=== PATIENT | male | born 1990 | race Caucasian/White ===

== ENCOUNTER 2019-10-08 09:37 | Emergency (ER) | payer SELFPAY ==
[~2019-10-08] VITALS: Ht 175.3 cm; Wt 78.5 kg
--- OUTSIDE RECORDS SUMMARY | 2019-10-08 09:40 | XMS REPORT ---
Author Author Geoffrey, Praneeth [place] Organization Unknown Address Unknown Phone Unavailable PROBLEMS Condition Status Date Provider Notes Vitamin D deficiency active Brooklyn Weiss Complicated grief active Brooklyn Weiss Std screening active Brooklyn Weiss Fatigue and malaise active Brooklyn Weiss Depression, mild active Brooklyn Weiss Paresthesia active Brooklyn Weiss Family history of diabetes active Brooklyn dumont Symptom, polyuria active Brooklyn Weiss Polydipsia active Brooklyn Weiss Excessive sweating active Brooklyn Weiss Asthma, moderate persistent, with allergic rhinitis, uncontr olled active Brooklyn Weiss BMI 27.0-27.9 active Brooklyn Weiss Overweight active Brooklyn Weiss ENCOUNTERS Date Type Provider Location Encounter Diagn osis - Ambulatory Encounter Brooklyn [facility] Vitamin D defic iency - Ambulatory Encounter Brooklyn Weiss [facility] UNK - Ambulatory Encounter Brooklyn Weiss [facility] UNK - Ambulatory Encounter Brooklyn Weiss [facility] UNK - Ambulatory Encounter Brooklyn Hwangda Annabelle Siddiqui [facility] OverweightBMI 27.0-27.9Asthma, moderate persistent, with allergic rhinitis, uncontrolledExcessive sweatingPolydipsiaSymptom, polyuriaFamily history of diabetesParesthesiaDepression, mildFatigue and malaiseStd screeningComplicated grief - Ambulatory Encounter Bibi Resendez [facility] UNK - Ambulatory Encounter Bibi Yost [facility] UNK VITAL SIGNS Date Observation Value Provider oxygen saturation, oximetry 97 % Savona a I Siddiqui " method used to obtain blood pressure automatic Natty I Siddiqui " Blood Pressure Position 01 sitting Natty I Siddiqui " blood pressure, site #1 right arm Natty I Siddiqui " blood pressure, diastolic 82 mm[Hg] Natty I Siddiqui " blood pressure, systolic 126 mm[Hg] Natty I Siddiqui " pulse rate E&M 82 /min Natty I Siddiqui " temperature site oral Natty I Guerrer o " temperature E&M 97.5 [degF] Natty I Siddiqui " height E&M 67 [in_i] Natty I Siddiqui " height in centimeters E&M 170.18 cm Natty I Siddiqui " weight E&M 176.20 lbs. Natty I Siddiqui " weight in kilograms E&M 80.09 kg Natty I Siddiqui temperature site oral Nahomy Yost " temperature E&M 98.7 [degF] Nahomy Yost ALLERGIES Allergy Name Onset Date Reaction Criticality Status VALIUM Seizure High Criticality active MORPHINE Seizure High Criticality active REASON FOR REFERRAL No Information Available RESULTS Date Observation Value Provider Reference Range Interpretati on Location parathormone, serum 14 pg/mL [facility] 15-65 Low " hepatitis B surface antigen Negative [facility] Negative " insulin, serum, fasting 25.4 u[iU]/mL [facility] 2.6-24.9 H igh " thyroid stimulating hormone, serum 0.880 u[iU]/mL [facility] 0.450-4.500 " hepatitis C antibody, serum 0.2 [facility] 0.0-0.9 " HIV-CMIA (Chemiluminescent Microparticle Immuno Assay) Non Reactive [facility] Non Reactive " vitamin D 25-hydroxy, serum 21.3 ng/mL [facility] 30.0-100.0 Low " rapid plasma reagin antibody, serum Non Reactive [facility] Non Reactive " C-peptide, serum 3.4 ng/mL [facility] 1.1-4.4 " hemoglobin A1C, blood, as % of total hemoglobin 5.5 % Li n[facility] 4.8-5.6 " alanine aminotransferase (SGPT), serum 25 1/L [facility] 0-44 " aspartate aminotransferase (SGOT), serum 19 1/L [facility] 0-40 " alkaline phosphatase, serum 77 1/L [facility] 39-117 " bilirubin, serum, total 0.5 mg/dL [facility] 0.0-1.2 " albumin/globulin ratio, serum 2.0 [facility] 1.2-2.2 " globulin, serum 2.3 [facility] 1.5-4.5 " albumin, serum 4.6 g/dL [facility] 4.1-5.2 " protein, total, serum 6.9 g/dL [facility] 6.0-8.5 " calcium, serum 9.6 mg/dL [facility] 8.7-10.2 " carbon dioxide, venous blood 24 mmol/L [facility] 20-29 " chloride, serum 104 mmol/L [facility] 96-106 " potassium, serum 4.4 mmol/L [facility] 3.5-5.2 " sodium, serum 142 mmol/L [facility] 134-144 " urea nitrogen/creatinine ratio, serum 14 [facility] 9 -20 " eGFR if 112 mL/min/((173/100).m2) [facility] >59 " Estimated Glomerular Filtration Rate (calc) 97 m L/min/((173/100).m2) [facility] >59 " creatinine, serum 1.04 mg/dL [facility] 0.76-1.27 " urea nitrogen, blood 15 mg/dL [facility] 6-20 " blood glucose, random 70 mg/dL [facility] 65-99 " immature granulocytes, percentage of total cells, bloo d 0 % [facility] Not Estab. " basophil count, absolute 0.0 x10E3/uL [facility] 0.0-0.2 " Eosinophil Absolute Count 0.2 X10E3/UL [facility] 0.0-0.4 " monocyte count, blood, automated 0.6 X10E3/UL [facility] 0.1 -0.9 " lymphocyte count, blood, automated 1.6 X10E3/UL [facility] 0 .7-3.1 " Absolute Neutrophils 4.3 X10E3/UL [facility] 1.4-7.0 " basophils as percent of blood leukocytes 1 % [facility] Not Estab. " eosinophils as percent of blood leukocytes 3 % [facility] Not Estab. " monocytes as percent of blood leukocytes 10 % [facility] Not Estab. " lymphocytes as percent of blood leukocytes 24 % [facility] Not Estab. " neutrophils as percent of blood leukocytes 62 % [facility] Not Estab. " platelet count 268 X10E3/UL [facility] 150-450 " red blood cell distribution width 13.1 % [facility] 11.6- 15.4 " mean corpuscular hemoglobin concentration, RBC 33.8 G/DL [facility] 31.5-35.7 " mean corpuscular hemoglobin, RBC 32.3 pg [facility] 26.6-3 3.0 " mean corpuscular volume, RBC 96 fL [facility] 79-97 " hematocrit, blood 48.5 % [facility] 37.5-51.0 " hemoglobin, blood 16.4 g/dL [facility] 13.0-17.7 " erythrocyte (RBC) count 5.07 X10E6/UL [facility] 4.14-5.80 " leukocyte count, blood 6.8 X10E3/UL [facility] 3.4-10.8 hemoglobin A1C, blood, as % of total hemoglobin 5.9 % Brooklyn Weiss " specific gravity, urine 1.020 Vida Collins " pH, urine, semiquantitative 5.5 Vida Collins " glucose, urine, semiquantitative negative Vida Collins " bilirubin, urine negative Vida Collins " ketones, urine, by test strip negative Vida Collins " blood in urine (hemoglobin) by dipstick negative Vida rojas " protein, urine, semiquantitative (dipstick) negative Alejandra Collins " urobilinogen, urine, semiquantitative (dipstick) negative Champ Collins " nitrite, urine, semiquantitative negative Vida Collins " leukocyte esterase, urine, by dipstick negative Vida Beattyranulfo cobb " appearance, urine clear Vida Collins " urine color yellow Vida Collins " blood glucose, random 87 mg/dL Vida Collins HISTORY OF IMMUNIZATIONS Date Vaccine Dose Lot Number Status Adacel IM [id number] sanofi pasteur 0.5 mL [id number] completed Fluzone Quadrivalent IM PF 0.5 ML [facility] 49 [id number] Sanofi Pasteur 0.5 mL [id number] completed HISTORY OF MEDICATION USE Medication Instructions Dates Provider Comments VITAMIN D (ERGOCALCIFEROL) 20774 UNIT ORAL CAPSULE One capsule by mouth once per week for 12 weeks - Brooklyn Weiss MONTELUKAST SODIUM 10 MG ORAL TABLET take one tab By M outh take at bedtime for allergies and asthma Brooklyn Weiss ADVAIR DISKUS 250-50 MCG/DOSE INHALATION AEROSOL POWDE R BREATH ACTIVATED 1 puff inhaled Twice a Day Brooklyn Weiss PROAIR HFA 108 (90 BASE) MCG/ACT INHALATION AEROSOL SO LUTION 2 puffs every 4 - 6 hours as needed for wheezing Brooklyn Weiss SOCIAL HISTORY Date Observation Value Provider drug use, illicit Never Natty borges " alcohol use, frequency holidays/special occasion s only Natty Siddiqui " alcohol use Currently Natty Siddiqui " social history reviewed E&M reviewed today Venancio Siddiqui " social history E&M Partnered. City: [facility]. State: [place]. 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 Sex at : Male. Sexual orientation: Heterosexual. Gender identity: Male. Gender of partner(s): Female. Age of first sexual intercourse: 16. Sexually Active: Yes. 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 No Natty Siddiqui " assessment of health literacy (NCQA [facility] [address] [place], 3C10) Adequate Natty Siddiqui " passive cigarette smoke exposure No Natty Siddiqui " if the patient is using/has used a vaping item, Current, Former, Never Used, Not asked No Natty Siddiqui " smoking status never smoker Natty Siddiqui " Exercise Program Referral T Natty Siddiqui " Weight Management Counseling Provided T Natty Siddiqui " Nutrition intervention T Natty Osborne ushreyas FUNCTIONAL STATUS No Information Available MENTAL STATUS Date Observation Value Provider mental status examination: orientation E &M oriented to time, place, and person Brooklyn Weiss " assessment of mood and affect E&M anxious Brooklyn Weiss " Generalized Anxiety Disorder Questionnaire - Que stion 2 0 Natty Siddiqui " Generalized Anxiety Disorder Questionnaire - Que stion 1 0 Natty Joshua Siddiqui MEDICAL EQUIPMENT No Information Available FAMILY HISTORY No Information Available INSURANCE PROVIDERS No Information Available ADVANCE DIRECTIVES Name Date DISCUSSED - NO DECISION MADE TREATMENT PLAN Date Name ASSAY OF C-PEPTIDE ASSAY OF INSULIN TOTAL TSH Rfx on Abnormal to Free T4 RPR, Rfx Qn RPR/Confirm TP Vitamin D, 25-Hydroxy PTH, Intact HBsAg Screen HCV Antibody HIV 1/2 ANTIGEN/ANTIBODY, FO URTH GENERATION W/RFL Hemoglobin A1c Comp. Metabolic Panel (14) CBC With Differential/Platel et Behavioral Health - Therapy New Patient Comprehensive - 47896 Handling of specimen for tra nsfer Venipuncture Finger Stick Glucose HEMOGLOBIN A1C - In House Urinalysis - Dip only - In H ouse Addl Vx - Ix admin via ID IM or jet injects without counseling by physician Adacel Intramuscular Suspens ion 5-2-15.5 First Vx - Ix admin via ID I M or jet injects without counseling by physician Fluzone Quadrivalent IM Pref illed Syringe 0.5 mL (PF) Vaccines Ordered - Print Con sent/Declination Forms HISTORY OF PROCEDURES Procedure Date Procedure Name Provider Procedure Notes Status Venipuncture Brooklyn Abhishek comple raimundo Finger Stick Glucose Brooklyn Abhishek completed HEMOGLOBIN A1C - In House Brooklyn Weiss completed Urinalysis - Dip only - In House Brooklyn Weiss completed Addl Vx - Ix admin via ID IM or jet injects without counseling by physician Nahomy Yost completed Adacel Intramuscular Suspension 5-2-15.5 Nahomy Yost completed First Vx - Ix admin via ID I M or jet injects without counseling by physician Nahomy Yost completed Fluzone Quadrivalent IM Prefilled Syringe 0.5 mL (PF) Nahomy Yost completed Vaccines Ordered - Print Consent/Declination Forms Jimmie Yost completed GOALS No Information Available HEALTH CONCERNS No Information Available
--- OUTSIDE RECORDS SUMMARY | 2019-10-08 09:40 | XMS REPORT ---
Author Author Geoffrey, Praneeth [place] Organization Unknown Address Unknown Phone Unavailable PROBLEMS Condition Status Date Provider Notes Vitamin D deficiency active Brooklyn Weiss Complicated grief active Brooklyn Weiss Std screening active Brooklyn Weiss Fatigue and malaise active Brooklyn Weiss Depression, mild active Brooklyn Weiss Paresthesia active Brooklyn Weiss Family history of diabetes active Brooklyn mcfarlanederanulfo Symptom, polyuria active Brooklyn Weiss Polydipsia active Brooklyn Weiss Excessive sweating active Brooklyn Weiss Asthma, moderate persistent, with allergic rhinitis, uncontr olled active Brooklyn Weiss BMI 27.0-27.9 active Brooklyn Weiss Overweight active Brooklyn Weiss ENCOUNTERS Date Type Provider Location Encounter Diagn osis - Ambulatory Encounter Chris Summers [facility] UNK - Ambulatory Encounter Chris Summers [place] [facility] UNK - Ambulatory Encounter Chris Morgan [facility] UNK - Ambulatory Encounter Brooklyn Weiss [facility] Vitamin D defic iency - Ambulatory Encounter Brooklyn Weiss [facility] Chris Summers [facility] UNK - Ambulatory Encounter Brooklyn Weiss [facility] UNK - Ambulatory Encounter [facility] - Ambulatory Encounter Brooklyn Kowalski elizabethyoandy Brooklyn Weiss Raoul Alanis Vida Dennis Siddiqui [facility] OverweightBMI 27.0-27.9Asthma, moderate persistent, with allergic rhinitis, uncontrolledExcessive sweatingPolydipsiaSymptom, polyuriaFamily history of diabetesParesthesiaDepression, mildFatigue and malaiseStd screeningComplicated grief - Ambulatory Encounter Bibi oliverLoglenny [facility] UNK - Ambulatory Encounter Bibi Yost [facility] UNK VITAL SIGNS Date Observation Value Provider oxygen saturation, oximetry 97 % Venancio petty Siddiqui " method used to obtain blood pressure automatic Natty Siddiqui " Blood Pressure Position 01 sitting Natty Joshua Siddiqui " blood pressure, site #1 right arm Natty Joshua Siddiqui " blood pressure, diastolic 82 mm[Hg] Natty I Siddiqui " blood pressure, systolic 126 mm[Hg] Natty I Siddiqui " pulse rate E&M 82 /min Natty I Siddiqui " temperature site oral Natty I Rogerioerrer o " temperature E&M 97.5 [degF] Natty I Siddiqui " height E&M 67 [in_i] Natty I Siddiqui " height in centimeters E&M 170.18 cm Natty I Siddiqui " weight E&M 176.20 lbs. Natty I Siddiqui " weight in kilograms E&M 80.09 kg Natty Joshua BeattySiddiqui temperature site oral Iris Priyank " temperature E&M 98.7 [degF] Iris Priyank ALLERGIES Allergy Name Onset Date Reaction Criticality [...] leukocyte esterase, urine, by dipstick negative Vida cobb " appearance, urine clear Vida Collins " urine color yellow Vida Collins " blood glucose, random 87 mg/dL Vida Collins HISTORY OF IMMUNIZATIONS Date Vaccine Dose Lot Number Status Adacel IM [id number] sanofi pasteur 0.5 mL [id number] completed Fluzone Quadrivalent IM PF 0.5 ML [facility] 49 [id number] Sanofi Pasteur 0.5 mL [id number] completed HISTORY OF MEDICATION USE Medication Instructions Dates Provider Comments VITAMIN D (ERGOCALCIFEROL) 14123 UNIT ORAL CAPSULE One capsule by mouth [...] Weiss SOCIAL HISTORY Date Observation Value Provider time of call 08/24/2019 9:55 AM Lori Morgan drug use, illicit Never Natty borges " alcohol use, frequency holidays/special occasion s only Natty Siddiqui " alcohol use Currently Natty Siddiqui " social history reviewed E&M reviewed today Venancio Siddiqui " social history E&M Partnered. City: [facility]. State: [place]. 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 Sex at : Male. Sexual orientation: Heterosexual. Gender identity: Male. Gender of partner(s): Female. Age of first sexual intercourse: 16. Sexually Active: Yes. 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 No Natty Siddiqui " assessment of health literacy (NCQA [facility] 3[facility]10) Adequate Natty Siddiqui " passive cigarette smoke exposure No Natty Siddiqui " if the patient is using/has used a vaping item, Current, Former, Never Used, Not asked No Natty Siddiqui " smoking status never smoker Natty Siddiqui " Exercise Program Referral T Natty Siddiqui " Weight Management Counseling Provided T Natty Siddiqui " Nutrition intervention T Natty downing FUNCTIONAL STATUS No Information Available MENTAL STATUS Date Observation Value Provider mental status examination: orientation E &M oriented to time, place, and person Brooklyn Weiss " assessment of mood and affect E&M anxious Brooklyn Weiss " Generalized Anxiety Disorder Questionnaire - Que stion 2 0 Natty Siddiqui " Generalized Anxiety Disorder Questionnaire - Que stion 1 0 Natty Joshua BeattySiddiqui MEDICAL EQUIPMENT No Information Available FAMILY HISTORY [...] Health - Therapy New Patient Comprehensive - 37140 Handling of specimen for tra nsfer Venipuncture [...] Name Provider Procedure Notes Status Venipuncture Brooklyn Weiss comple raimundo Finger Stick Glucose Brooklyn Weiss completed HEMOGLOBIN A1C - In House Brooklyn [...]
--- OUTSIDE RECORDS SUMMARY | 2019-10-08 09:40 | XMS REPORT ---
Author Author [facility] t Organization [facility] Address [address] [place] [address] Phone Unavailable Care Team Providers Care Engine Research Engineer Name Role Phone Unavailable Unavailable Payers Payer Name Policy Type Policy Number Effective Date Expiration Date S ource Problems This patient has no known problems. Allergies, Adverse Reactions, Alerts Allergy Name Allergy Type Status Severity Reaction(s) Onset Date Inacti ve Date Treating Clinician Comments Source No Known Allergies DA Active U 2018-11-29 00:00:00 [facility] Medications This patient has no known medications. Procedures This patient has no known procedures. Results Test Description Test Time Test Comments Results Result Comments Source BASIC METABOLIC PANEL 2018-11-29 14:37:00 Test Item SODIUM (test code = NA) 142 mmol/L 136-145 N POTASSIUM (test code = K) 3.6 mmol/L 3.5-5.1 N CHLORIDE (test code = CL) 109.0 mmol/L 98-107 H CARBON DIOXIDE (test code = CO2) 29.0 mmol/L 21-32 N ANION GAP (test code = GAP) 7.6 10-20 L GLUCOSE (test code = GLU) 74 mg/dL 74-106 N BLOOD UREA NITROGEN (test code = BUN) 11 mg/dL 7-18 N GLOMERULAR FILTRATION RATE (test code = GFR) > 60 mL/min >=60 Estimated GFR by using Modified MDRD formula.Chronic kidney disease is defined as either kidney damageor GFR <60 mL/min/1.73 m2 for >3 months. CREATININE (test code = CREAT) 1.20 mg/dL 0.7-1.3 N BUN/CREATININE RATIO (test code = BUN/CREA) 9.2 10-20 L CALCIUM (test code = CA) 8.6 mg/dL 8.5-10.1 N CBC W/O [id number] 14:15:00* Test Item Value Reference Range Interpretation Comments WHITE BLOOD CELL (test code = WBC) 6.6 K/mm3 4.5-12.5 N RED BLOOD CELL (test code = RBC) 4.91 mill/mm3 4.0-5.8 N HEMOGLOBIN (test code = HGB) 15.9 gram/dL 13.0-17.5 N HEMATOCRIT (test code = HCT) 46.5 % 42.0-52.0 N MEAN CELL VOLUME (test code = MCV) 94.7 fL 80-98 N MEAN CELL HGB (test code = MCH) 32.4 picogram 27.0-33.0 N MEAN CELL HGB CONCETRATION (test code = MCHC) 34.2 gram/dL 33.0-36. 0 N RED CELL DISTRIBUTION WIDTH (test code = RDW) 12.3 % 11.6-16. 2 N PLATELET COUNT (test code = PLT) 241 K/mm3 150-450 N MEAN PLATELET VOLUME (test code = MPV) 8.9 fL 6.7-11.0 N CBC W/O [id number] 14:12:00* Test Item Value Reference Range Interpretation Comments WHITE BLOOD CELL (test code = WBC) K/mm3 4.5-12.5 RED BLOOD CELL (test code = RBC) mill/mm3 4.0-5.8 HEMOGLOBIN (test code = HGB) 15.9 gram/dL 13.0-17.5 N HEMATOCRIT (test code = HCT) 46.5 % 42.0-52.0 N MEAN CELL VOLUME (test code = MCV) fL 80-98 MEAN CELL HGB (test code = MCH) picogram 27.0-33.0 MEAN CELL HGB CONCETRATION (test code = MCHC) gram/dL 33.0-36. 0 RED CELL DISTRIBUTION WIDTH (test code = RDW) % 11.6-16. 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 COMPARISON: None available. Lateral testicular ultrasound with Doppler and color flow and grayscale imaging. Both testicles demonstrating low-resistance arterial Doppler flow with normal spectral waveform excluding testicular torsion bilaterally. No solid or cystic intratesticular mass on either side. Echogenicity and texture symmetrical and normal excluding orchitis bilaterally. Right testicle is measuring 4.1 x 2 x 2.5 cm. Epididymis is unremarkable. Small hydrocele. No varicocele. Left testicle measured 4.2 x 1.9 x 2.7 cm. Epididymis is within normal limits. Small complex hydrocele. No varicocele. IMPRESSION: No testicular torsion or solid or cystic intratesticular mass. No orchitis or epididymitis. Small bilateral complex hydrocele. No varicocele. at 1346 Reported and signed by: Lokesh Eden M.D. 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 COMPARISON: None available. Lateral testicular ultrasound with Doppler and color flow and grayscale imaging. Both testicles demonstrating low-resistance arterial Doppler flow with normal spectral waveform excluding testicular torsion bilaterally. No solid or cystic intratesticular mass on either side. Echogenicity and texture symmetrical and normal excluding orchitis bilaterally. Right testicle is measuring 4.1 x 2 x 2.5 cm. Epididymis is unremarkable. Small hydrocele. No varicocele. Left testicle measured 4.2 x 1.9 x 2.7 cm. Epididymis is within normal limits. Small complex hydrocele. No varicocele. IMPRESSION: No testicular torsion or solid or cystic intratesticular mass. No orchitis or epididymitis. Small bilateral complex hydrocele. No varicocele. at 1346 Reported and signed by: Lokesh Eden M.D. CC: Paige Edwards NP Technologist: NEERAJ OLIVEIRA(Emmanuel),[facility] Date/Time: 11/29/2018 (1346) [email or web address] Orig Print D/T: S: 11/29/2018 (7082) Probe: PAGE 1 Signed Report URINALYSIS [id number] 13:32:00* Test Item Value Reference Range Interpretation Comments UA COLOR (test code = COLU) Light-Yellow YELLOW UA APPEARANCE (test code = APPU) CLEAR CLEAR UA GLUCOSE DIPSTICK (test code = DGLUU) NEGATIVE mg/dL NEGATIVE UA BILIRUBIN DIPSTICK (test code = BILU) NEGATIVE mg/dL NEGATIVE UA KETONE DIPSTICK (test code = KETU) NEGATIVE mg/dL NEGATIVE UA SPECIFIC GRAVITY (test code = SGU) 1.021 1.001-1.035 UA BLOOD DIPSTICK (test code = IGOVANNA) Negative mg/dL NEGATIVE UA PH DIPSTICK (test code = CHRIS) 6.0 5.0-8.0 UA PROTEIN DIPSTICK (test code = PROU) NEGATIVE mg/dL NEGATIVE UA UROBILINIOGEN DIPSTICK (test code = URO) Normal mg/dL NEGATIVE UA NITRITE DIPSTICK (test code = RENZO) NEGATIVE NEGATIVE UA LEUKOCYTE ESTERASE W REFLEX (test code = LEUUR) NEGATIVE Anthony/uL NEGATIVE UA WBC (test code = WBCU) 0-5 per HPF 0-5 UA RBC (test code = RBCU) 0-2 #/HPF 0-5 UA EPITHELIAL CELLS (test code = EPIU) FEW per HPF FEW UA BACTERIA (test code = BACU) FEW #/HPF NONE A UA MUCUS (test code = MUCU) FEW #/LPF FEW Urine Source? Clean Catch
--- OUTSIDE RECORDS SUMMARY | 2019-10-08 09:40 | XMS REPORT ---
Author Author Admin, Praneeth [place] Organization Unknown Address Unknown Phone Unavailable PROBLEMS Condition Status Date Provider Notes PERSISTENT DEPRESSIVE DISORDER, MODERATE active Angelica Phillips GENERALIZED ANXIETY DISORDER active Angelica edge Vitamin D deficiency active Brooklyn Weiss Complicated grief active Brooklyn Weiss Std screening completed - Brooklyn sheth Fatigue and malaise active Brooklyn Weiss Depression, severe active Brooklyn Weiss Paresthesia active Brooklyn Weiss Family history of diabetes active Brooklyn mcfarlanederanulfo Symptom, polyuria active Brooklyn Weiss Polydipsia active Brooklyn Weiss Excessive sweating active Brooklyn Weiss Asthma, moderate persistent, with allergic rhinitis, uncontr olled active Brooklyn Weiss BMI 27.0-27.9 active Brooklyn Weiss Overweight active Brooklyn Weiss ENCOUNTERS Date Type Provider Location Encounter Diagn osis - Ambulatory Encounter Angelica Phillips [facility] GENERALIZED ANXIETY DISORDERPERSISTENT DEPRESSIVE DISORDER, MODERATE - Ambulatory Encounter Brooklyn [facility] UNK - Ambulatory Encounter Brooklyn Weiss [facility] UNK - [facility] Depression, severeStd screening - [facility] - Ambulatory Encounter Jemma Paulo [facility] UNK - Ambulatory Encounter Jemma Garciakatia [facility] UNK - Ambulatory Encounter Myrinoama Summers [facility] UNK - Ambulatory Encounter Myrissa [facility] - [facility] Encounter Brooklyn [facility] Vitamin D defic iency - Ambulatory Encounter Brooklyn RodgersLog Myrissa Summers [facility] UNK - Ambulatory Encounter Brooklyn Weiss [facility] UNK - Ambulatory Encounter Brooklyn Weiss [facility] UNK - Ambulatory Encounter Brooklyn Siddiqui [facility] OverweightBMI 27.0-27.9Asthma, moderate persistent, with allergic rhinitis, uncontrolledExcessive sweatingPolydipsiaSymptom, polyuriaFamily history of diabetesParesthesiaDepression, severeFatigue and malaiseStd screeningComplicated grief - Ambulatory Encounter Bibi Araujo [facility] UNK - Ambulatory Encounter Bibi Hernadez is Priyank [facility] UNK VITAL SIGNS Date Observation Value Provider blood pressure, diastolic 73 mm[Hg] Alejandra Collins " blood pressure, systolic 114 mm[Hg] Vida Collins " oxygen saturation, oximetry 98 % Simran Collins " pulse rate E&M 83 /min Vida Collins " temperature E&M 98.7 [degF] Vida Collins " weight E&M 174.25 lbs. Vida Collins " weight in kilograms E&M 79.20 kg Vida Collins " method used to obtain blood pressure automatic Vida Collins " temperature site oral Vida Collins " Blood Pressure Position 01 sitting Dara Collins " blood pressure, site #1 right arm Vida Collins " height E&M 67 [in_i] Vida Collins " height in centimeters E&M 170.18 cm Alejandra Collins oxygen saturation, oximetry 97 % [place] a I Siddiqui " method used to [...] Vaccine Dose Lot Number Status Adacel IM [id number] sanofi pasteur 0.5 mL [id number] completed Fluzone Quadrivalent IM PF 0.5 ML [facility] 49 [id number] Sanofi Pasteur 0.5 mL [id number] completed HISTORY OF MEDICATION USE Medication Instructions Dates Provider Comments HYDROXYZINE HCL 25 MG ORAL TABLET Take 1 tablet twice a day As Needed for anxiety Angelica Phillips PAROXETINE HCL 20 MG ORAL TABLET take one tab By Mouth daily for depression/anxiety Brooklyn Weiss VITAMIN D (ERGOCALCIFEROL) 48658 UNIT ORAL CAPSULE One capsule by mouth [...] Observation Value Provider drug use, illicit Never Angelica miranda " alcohol use Currently Angelica Phillips " smoking status never smoker Angelica Phillips " social history reviewed E&M reviewed today Dylan Phillips " social history E&M Partnered. City: [facility]. State: [place]. 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 works at [employer] Sex at : Male. Sexual orientation: Heterosexual. Gender identity: Male. Gender of partner(s): Female. Age of first sexual intercourse: 16. Sexually Active: Yes. Angelica Phillips " home/family situation, assessment lives with gir lfriend and 2 kids Angelica Phillips Exercise Program Referral T Alejandra Collins " Weight Management Counseling Provided T Vida Collins " Nutrition intervention T Vida malave " sexual orientation Heterosexual Vida green " is there any chance that you could be ? No Vida Collins " assessment of health literacy ([facility] 2014 andailyn, 3C10) Adequate Vida Collins " passive cigarette smoke exposure No Vida Collins " if the patient is using/has used a vaping item, Current, Former, Never Used, Not asked No Vida Collins " drug use, illicit Never Vida Collins " alcohol use Currently Vida Collins " smoking status never smoker Vida Collins " social history E&M Partnered. City: [facility]. State: [place]. 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 Sex at : Male. Sexual orientation: Heterosexual. Gender identity: Male. Gender of partner(s): Female. Age of first sexual intercourse: 16. Sexually Active: Yes. Vida Collins " social history reviewed E&M reviewed today Simran Collins time of call 08/24/2019 9:55 AM Lori Morgan drug use, illicit Never Natty I Rogerioerre ro " alcohol use, frequency holidays/special occasion s only Natty I Siddiqui " alcohol use Currently Natty I Siddiqui " social history reviewed E&M reviewed today [place] a I Siddiqui " social history E&M Partnered. City: [facility]. State: [place]. 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 Sex at : Male. Sexual orientation: Heterosexual. Gender identity: Male. Gender of partner(s): Female. Age of first sexual intercourse: 16. Sexually Active: Yes. 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 No Natty Siddiqui " assessment of health literacy (NCQA [facility] 2014 [facility], 3C10) Adequate Natty Siddiqui " passive cigarette smoke exposure No Natty Siddiqui " if the patient is using/has used a vaping item, Current, Former, Never Used, Not asked No Natty Siddiqui " smoking status never smoker Natty Joshua Siddiqui " Exercise Program Referral T Natty Siddiqui " Weight Management Counseling Provided T Natty Siddiqui " Nutrition intervention T Nattypetty downing FUNCTIONAL STATUS No Information Available MENTAL STATUS Date Observation Value Provider If any problems checked, how difficult have these problems made it for you to do your work, take care of things at home, or get along with other people (GAD7, question 8) 2 Joaoa Alan " Generalized Anxiety Disorder Questionnaire - Que stion 3 2 Josepha Alan " Generalized Anxiety Disorder Questionnaire - Que stion 7 2 Josepha Alan " Generalized Anxiety Disorder Questionnaire - Que stion 6 3 Josepha Alan " Generalized Anxiety Disorder Questionnaire - Que stion 5 3 Josepha Alan " Generalized Anxiety Disorder Questionnaire - Que stion 4 3 Josepha Alan " Generalized Anxiety Disorder Questionnaire - Que stion 2 2 Josepha Alan " Generalized Anxiety Disorder Questionnaire - Que stion 1 2 Joaoa Alan " mental status assessment, judgment good Angelica Phillips " insight (mental status exam) good Adalberto Phillips " Mental Status Exam: intelligence did not recall details about his life, oriented to person, oriented to place, oriented to time, oriented to situation, oriented to reality Angelica Phillips " hallucinations none Angelica Phillips " thought content (mental status exam) (E&M) lucid Angelica Phillips " mental status assessment, process goal-directed, Angelica Phillips " mental status assessment, sensorium aler t, attentive, clear; did not remember a lot of detail of his past e.g. name of hospital, previous meds Angelica Alan " affect (mental status exam) congruent, Dylan Phillips " mood (mental status exam) plesant Joao Phillips " mental status assessment, speech activit y normal flow, normal pace, normal pressure, normal rate, normal tone, normal volume, spontaneous Joaopetty Phillips " mental status assessment, motor activity normal gait, normal posture Angelica Phillips " behavior (mental status exam) spitting t hroughout appt, stated "it's a bad habit i had for a long time". appropriate, candid, cooperative, good eye contact, polite, responsive Angelica Phillips " mental appearance (mental status exam) a dequate hygiene, appropriate dress, looks like stated age, neat Angelica Phillips " anxiety worry a lot, sleep d isturbance, restlessness, irritability, many physical complaints, muscle tension Angelica Phillips mental status examination: orientation E &M oriented to time, place, and person Brooklyn Weiss " assessment of mood and affect E&M no depression, anxiety, or agitation Brooklyn Weiss " Generalized Anxiety Disorder Questionnaire - Que stion 2 0 Vida Collins " Generalized Anxiety Disorder Questionnaire - Que stion 1 0 Vida Collins mental status examination: orientation E &M oriented to time, place, and person Brooklyn Weiss " assessment of mood and affect E&M anxious Brooklyn Weiss " Generalized Anxiety Disorder Questionnaire - Que stion 2 0 Natty Siddiqui " Generalized Anxiety Disorder Questionnaire - Que stion 1 0 Natty I Artur [employer] No Information Available FAMILY HISTORY [...] Metabolic Panel (14) CBC With Differential/Platel et [facility] Est Patient Exp Problem - 99 213 Behavioral Health - Therapy New Patient Comprehensive - 21698 Handling of specimen for tra nsfer Venipuncture [...] Date Procedure Name Provider Procedure Notes Status [facility] - [id number] Angelica Fidelina cherri completed Venipuncture Brooklyn pickett raimundo Finger Stick Glucose Brooklyn Weiss completed [...]
--- OUTSIDE RECORDS SUMMARY | 2019-10-08 09:40 | XMS REPORT ---
Author Author Admin, Praneeth [place] Organization Unknown Address Unknown Phone Unavailable PROBLEMS Condition Status Date Provider Notes PERSISTENT DEPRESSIVE DISORDER, MODERATE active Angelica Pihllips GENERALIZED ANXIETY DISORDER active Angelica edge Vitamin D deficiency active Brooklyn Wiess Complicated grief active Brooklyn Weiss Std screening [...] Diagn osis - Ambulatory Encounter Angelica Phillips [facility] GENERALIZED ANXIETY DISORDERPERSISTENT DEPRESSIVE DISORDER, MODERATE - Ambulatory Encounter Brooklyn Weiss [facility] [facility] UNK - Ambulatory Encounter Brooklyn Weiss [facility] UNK - [facility] Depression, severeStd screening - Ambulatory En[facility] - Ambulatory Encounter Jemma Paulo [facility] UNK - Ambulatory Encounter Jemma Garciakatia [facility] UNK - Ambulatory Encounter Myrinoama Summers [facility] UNK - Ambulatory Encounter Myrissa [facility] UNK - [facility] UNK - Ambulatory Encounter Brooklyn Weiss [facility] Vitamin D defic iency - Ambulatory Encounter Brooklyn RodgersLog Myrissa Sum[facility] UNK - Ambulatory Encounter Brooklyn Weiss [facility] UNK - Ambulatory Encounter Brooklyn Weiss [facility] UNK - Ambulatory Encounter Brooklyn Siddiqui [facility] OverweightBMI 27.0-27.9Asthma, moderate persistent, with allergic rhinitis, uncontrolledExcessive sweatingPolydipsiaSymptom, polyuriaFamily history of diabetesParesthesiaDepression, severeFatigue and malaiseStd screeningComplicated grief - Ambulatory Encounter Bibi Araujo [facility] UNK - Ambulatory Encounter Bibi Hernadez is Priyank [facility] UNK VITAL SIGNS Date [...] Alejandra Collins oxygen saturation, oximetry 97 % [place] a I Siddiqui " method used to [...] Vaccine Dose Lot Number Status Adacel IM [id number] sanofi pasteur 0.5 mL [id number] completed Fluzone Quadrivalent IM PF 0.5 ML [facility] 49 [id number] Sanofi Pasteur 0.5 mL [id number] completed HISTORY OF MEDICATION USE Medication Instructions Dates Provider Comments HYDROXYZINE HCL 25 MG ORAL TABLET Take 1 tablet twice a day As Needed for anxiety Angelica Phillips PAROXETINE HCL 20 MG ORAL TABLET take one tab By Mouth daily for depression/anxiety Brooklyn Weiss VITAMIN D (ERGOCALCIFEROL) 55557 UNIT ORAL CAPSULE One capsule by mouth [...] Phillips " social history E&M Partnered. City: [facility]. State: [place]. 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 works at [employer] Sex at : Male. Sexual orientation: Heterosexual. [...] Vida Collins " assessment of health literacy ([facility] 2014 andailyn, 3C10) Adequate Vida Collins " passive cigarette smoke exposure No Vida Collins " if the patient is using/has used a vaping item, Current, Former, Never Used, Not asked No Vida Collins " drug use, illicit Never Vida Collins " alcohol use Currently Vida Collins " smoking status never smoker Vida Collins " social history E&M Partnered. City: [facility]. State: [place]. 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 Sex [...] " social history reviewed E&M reviewed today [place] a I Siddiqui " social history E&M Partnered. City: [facility]. State: [place]. 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 Sex at : Male. Sexual orientation: Heterosexual. Gender identity: Male. Gender of partner(s): Female. Age of first sexual intercourse: 16. Sexually Active: Yes. 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 No Natty Siddiqui " assessment of health literacy (NCQA [facility] 2014 [facility], 3C10) Adequate Natty Siddiqui " passive cigarette [...] With Differential/Platel et [id number] Est Patient Exp Problem - 99 213 Behavioral Health - Therapy New Patient Comprehensive - 50455 Handling of specimen for tra nsfer Venipuncture [...] Provider Procedure Notes Status [facility] - [id number] Angelica Fidelina cherri completed Venipuncture Brooklyn pickett [...]
--- OUTSIDE RECORDS SUMMARY | 2019-10-08 09:40 | XMS REPORT ---
Author Author Admin, Praneeth [place] Organization Unknown Address Unknown Phone Unavailable PROBLEMS Condition Status Date Provider Notes PERSISTENT DEPRESSIVE DISORDER, MODERATE active Angelica Phillips GENERALIZED ANXIETY DISORDER active Angelica edge Vitamin D deficiency active Brooklyn Weiss Complicated grief active Brooklyn Weiss Std screening completed - Brooklyn sheth Fatigue and malaise active Brooklyn Weiss Depression, severe active Brokolyn Weiss Paresthesia active Brooklyn Weiss Family history of diabetes active Brooklyn mcfarlanederanulfo Symptom, polyuria active Brooklyn Weiss Polydipsia active Brooklyn Weiss Excessive sweating active Brooklyn Weiss Asthma, moderate persistent, with allergic rhinitis, uncontr olled active Brooklyn Weiss BMI 27.0-27.9 active Brooklyn Weiss Overweight active Brooklyn Weiss ENCOUNTERS Date Type Provider Location Encounter Diagn osis - Ambulatory Encounter Angelica Phillips [facility] GENERALIZED ANXIETY DISORDERPERSISTENT DEPRESSIVE DISORDER, MODERATE - Ambulatory Encounter Brooklyn Weiss [facility] UNK - Ambulatory Encounter Brooklyn Weiss [facility] UNK - [facility]ulatory [facility] Depression, severeStd screening - Ambulatory Encounter [facility] UN[facility] - Ambulatory Encounter Jemma Paulo [facility] UNK - Ambulatory Encounter Jemma Garciakatia [facility] UNK - Ambulatory Encounter Myrinoama Sum[facility] UNK - Ambulatory Encounter Myrissa Sum[facility] UN[facility] - [facility] UN[facility] - Ambulatory Encounter Brooklyn Weiss [facility] Vitamin D defic iency - Ambulatory Encounter Brooklyn RodgersLog Myrissa Summers [facility] UNK - Ambulatory Encounter Brooklyn Weiss [facility] UNK - Ambulatory Encounter Brooklyn Weiss [facility] UNK - Ambulatory Encounter Brooklyn Siddiqui [facility] OverweightBMI 27.0-27.9Asthma, moderate persistent, with allergic rhinitis, uncontrolledExcessive sweatingPolydipsiaSymptom, polyuriaFamily history of diabetesParesthesiaDepression, severeFatigue and malaiseStd screeningComplicated grief - Ambulatory Encounter Bibi Araujo [facility] UNK - Ambulatory Encounter Bibi Hernadez is Priyank [facility] UNK VITAL SIGNS Date [...] Alejandra Collins oxygen saturation, oximetry 97 % [place] a I Siddiqui " method used to [...] Vaccine Dose Lot Number Status Adacel IM [id number] sanofi pasteur 0.5 mL [id number] completed Fluzone Quadrivalent IM PF 0.5 ML [facility] 49 [id number] Sanofi Pasteur 0.5 mL [id number] completed HISTORY OF MEDICATION USE Medication Instructions Dates Provider Comments HYDROXYZINE HCL 25 MG ORAL TABLET Take 1 tablet twice a day As Needed for anxiety Angelica Phillips PAROXETINE HCL 20 MG ORAL TABLET take one tab By Mouth daily for depression/anxiety Brooklyn Weiss VITAMIN D (ERGOCALCIFEROL) 62857 UNIT ORAL CAPSULE One capsule by mouth [...] Phillips " social history E&M Partnered. City: [facility]. State: [place]. 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 works at [employer] Sex at : Male. Sexual orientation: Heterosexual. [...] Vida Collins " assessment of health literacy ([facility] 2014 andailyn, 3C10) Adequate Vida Collins " passive cigarette smoke exposure No Vida Collins " if the patient is using/has used a vaping item, Current, Former, Never Used, Not asked No Vida Collins " drug use, illicit Never Vida Collins " alcohol use Currently Vida Collins " smoking status never smoker Vida Collins " social history E&M Partnered. City: [facility]. State: [place]. 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 Sex [...] " social history reviewed E&M reviewed today [place] a I Siddiqui " social history E&M Partnered. City: [facility]. State: [place]. 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 Sex at : Male. Sexual orientation: Heterosexual. Gender identity: Male. Gender of partner(s): Female. Age of first sexual intercourse: 16. Sexually Active: Yes. 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 No Natty Siddiqui " assessment of health literacy (NCQA [facility] 2014 [facility], 3C10) Adequate Natty Siddiqui " passive [...] With Differential/Platel et [facility]1804 Est Patient Exp Problem - 99 213 Behavioral Health - Therapy New Patient Comprehensive - 44127 Handling of specimen for tra nsfer Venipuncture [...] Provider Procedure Notes Status Diagnostic evaluation with [facility] - 08011 Angelica Fidelina cherri completed Venipuncture Brooklyn pickett [...]
--- OUTSIDE RECORDS SUMMARY | 2019-10-08 09:40 | XMS REPORT ---
Author Author Admin, Praneeth Euclid Organization Unknown Address Unknown Phone Unavailable PROBLEMS [...] Location Encounter Diagn osis - Ambulatory Encounter Bev Rea [facility] UNK - Ambulatory Encounter Brooklyn Weiss [facility] UNK - Ambulatory Encounter Angelica Phillips [facility] GENERALIZED ANXIETY DISORDERPERSISTENT DEPRESSIVE DISORDER, MODERATE - Ambulatory Encounter Brooklyn Weiss [facility] UNK - Ambulatory Encounter Brooklyn Weiss [facility] UNK - Ambulatory Encounter Brooklyn Collins [facility] Depression, severeStd screening - Ambulatory Encounter Brooklyn Weiss [facility] UNK - Ambulatory Encounter Jemma E[facility] - Ambulatory Encounter Jemma Eaton [facility] UNK - Ambulatory Encounter Chris Summers [facility] UNK - Ambulatory Encounter Chris Summers [facility] UNK - [facility] - Ambulatory Encounter Brooklyn Weiss [facility] Vitamin D defic iency - Ambulatory Encounter Brooklyn Weiss [facility] Seraa Summers [facility] UNK - Ambulatory Encounter Brooklyn Weiss [facility] UNK - Ambulatory Encounter Brooklyn Weiss [facility] UNK - Ambulatory Encounter Brooklyn Hwangda Annabelle Siddiqui [facility] OverweightBMI 27.0-27.9Asthma, moderate persistent, with allergic rhinitis, uncontrolledExcessive sweatingPolydipsiaSymptom, polyuriaFamily history of diabetesParesthesiaDepression, severeFatigue and malaiseStd screeningComplicated grief - Ambulatory Encounter Bibi Resendez [facility] UNK - Ambulatory Encounter Bibi Yipvan Yost [facility] UNK VITAL SIGNS Date Observation Value Provider blood pressure, diastolic 73 mm[Hg] Alejandra dove Dennis " blood pressure, systolic 114 mm[Hg] Vida Beattyzman " oxygen saturation, oximetry 98 % Simran martin Collins " pulse rate 83 /min Vida Collins " temperature E&M 98.7 [degF] Vida Collins " weight E&M 174.25 lbs. Vida Collins " weight in kilograms E&M 79.20 kg Vida Collins " method used to obtain blood pressure automatic Vida Collins " temperature site oral Vida Beattyzman " Blood Pressure Position 01 sitting Dara medina Dennis " blood pressure, site #1 right arm Vida Beattyzman " height E&M 67 [in_i] Vida Beattyzman " height in centimeters E&M 170.18 cm Simranic petty BeattyCollins oxygen saturation, oximetry 97 % [place] a I Siddiqui " method used to obtain blood pressure automatic Natty I Siddiqui " Blood Pressure Position 01 sitting Natty I Siddiqui " blood pressure, site #1 right arm Natty I Siddiqui " blood pressure, diastolic 82 mm[Hg] Natty I Siddiqui " blood pressure, systolic 126 mm[Hg] Natty I Siddiqui " pulse rate 82 /min Natty I Siddiqui " temperature [...] rojas " protein, urine, semiquantitative (dipstick) negative Simranic a Dennis " urobilinogen, urine, semiquantitative (dipstick) negative J essmartin Collins " nitrite, urine, semiquantitative negative Vida Collins " leukocyte esterase, urine, by dipstick negative Vida cobb " appearance, urine clear Vida Collins " urine color yellow Vida Collins " blood glucose, random 87 mg/dL Vida Collins HISTORY OF IMMUNIZATIONS Date Vaccine Dose Lot Number Status Adacel IM [id number] sanofi pasteur 0.5 mL [id number] completed Fluzone Quadrivalent IM PF 0.5 ML [facility] [id number] Sanofi Pasteur 0.5 mL [id number] completed HISTORY OF MEDICATION USE Medication Instructions Dates Provider Comments HYDROXYZINE HCL 25 MG ORAL TABLET Take 1 tablet twice a day As Needed for anxiety Angelica Phillips PAROXETINE HCL 20 MG ORAL TABLET take one tab By Mouth daily for depression/anxiety Brooklyn Weiss VITAMIN D (ERGOCALCIFEROL) 07237 UNIT ORAL CAPSULE One capsule by mouth [...] Phillips " social history E&M Partnered. City: [facility]. State: [place]. 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 works at [employer] Sex at : Male. Sexual orientation: Heterosexual. [...] Vida Collins " assessment of health literacy ([facility] 2014 [facility], 3C10) Adequate Vida Collins " passive cigarette smoke exposure No Vida Collins " if the patient is using/has used a vaping item, Current, Former, Never Used, Not asked No Vida Collins " drug use, illicit Never Vida Collins " alcohol use Currently Vida Collins " smoking status never smoker Vida Collins " social history E&M Partnered. City: [facility]. State: [place]. 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 Sex [...] Siddiqui " social history E&M Partnered. City: [facility]. State: [place]. 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 Sex at : Male. Sexual orientation: Heterosexual. Gender identity: Male. Gender of partner(s): Female. Age of first sexual intercourse: 16. Sexually Active: Yes. 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 No Natty Siddiqui " assessment of health literacy ([facility] 2014 [facility], 3C10) Adequate Natty Siddiqui " passive cigarette smoke exposure No Natty Siddiqui " if the patient is using/has used a vaping item, Current, Former, Never Used, Not asked No Natty Siddiqui " smoking status never smoker Natty Siddiqui " Exercise Program Referral T Natty Siddiqui " Weight Management Counseling Provided T Natty Siddiqui " Nutrition intervention T Natty Osborne uerrero FUNCTIONAL STATUS No Information Available MENTAL STATUS Date Observation Value Provider If any problems checked, how difficult have these problems made it for you to do your work, take care of things at home, or get along with other people (GAD7, question 8) 2 Angelica Phillips " Generalized Anxiety Disorder Questionnaire - Que stion 3 2 Joaoa Alan " Generalized Anxiety Disorder [...] content (mental status exam) (E&M) lucid Angelica Alan " mental status assessment, process goal-directed, Angelica Alan " mental status assessment, sensorium aler t, attentive, clear; did not remember a lot of detail of his past e.g. name of hospital, previous meds Joaopetty Phillips " affect (mental status exam) congruent, Dylan Phillips " mood (mental status exam) plesant Joao Phillips " mental status assessment, speech activit y normal flow, normal pace, normal pressure, normal rate, normal tone, normal volume, spontaneous Angelica Phillips " mental status assessment, motor activity normal gait, normal posture Angleica Phillips " behavior (mental status exam) spitting [...] Questionnaire - Que stion 2 0 Natty Joshua Siddiqui " Generalized Anxiety Disorder Questionnaire - Que stion 1 0 Natty I Siddiqui MEDICAL EQUIPMENT No Information Available FAMILY [...] CBC With Differential/Platel et Diagnostic evaluation with [facility] - 39141 Est Patient Exp Problem - 99 213 Behavioral [facility] - Therapy New Patient Comprehensive - 57419 Handling of specimen for tra nsfer Venipuncture [...] Provider Procedure Notes Status Diagnostic evaluation with [facility] - 05111 Angelica Fidelina cherri completed Venipuncture Brooklyn eubanks Finger Stick Glucose Brooklyn Weiss completed HEMOGLOBIN [...] IM Prefilled Syringe 0.5 mL (PF) Nahomy Yots completed Vaccines Ordered - Print Consent/Declination Forms Jimmie Yost completed GOALS No Information Available HEALTH CONCERNS No Information Available
--- NOTE | 2019-10-08 11:23 | Diagnostic Imaging Report ---
EXAM: US TESTICULAR DATE: 10/08/2019 10:38 AM INDICATION: Testicular pain COMPARISON: None FINDINGS: The right testicle measures 4.0 x 2.2 x 3.4 cm. No focal intratesticular lesion is identified. Arterial and venous flow are preserved. The right epididymis measures 0.9 x 0.7 x 0.9 cm. There is no evidence for hyperemia. No significant hydrocele or varicocele is present. The left testicle measures 4.1 x 2.3 x 2.7 cm. No focal intratesticular lesion is identified. Arterial and venous flow are preserved. The left epididymis measures 0.9 x 0.8 x 0.8 cm. There is no evidence for hyperemia. A trace left-sided hydrocele is present. No significant varicocele is present. IMPRESSION: Trace left-sided hydrocele. Otherwise unremarkable testicular/scrotal ultrasound examination. Signed by: Dr. Juancho Lucas MD on 10/08/2019 11:19 AM
[2019-10-08] MEDS ORDERED: DOXYCYCLINE HY100 MG PO (11:33)
[2019-10-08 11:44] LABS: CLARITY,URINE CLEAR (CLEAR); COLOR,URINE YELLOW (YELLOW); PHENCYCLIDINE SCREEN,URINE NEGATIVE (NEGATIVE)
[2019-10-08 11:45] LABS: AMPHETAMINES SCREEN,URINE NEGATIVE (NEGATIVE); BENZODIAZEPINES SCREEN,URINE NEGATIVE (NEGATIVE)
[2019-10-08 11:46] LABS: BILIRUBIN,URINE NEGATIVE (NEGATIVE); KETONES,URINE NEGATIVE (NEGATIVE); LEUKOCYTE ESTERASE ,URINE NEGATIVE (NEGATIVE); NITRITE,URINE NEGATIVE (NEGATIVE); PROTEIN,URINE DIPSTICK NEGATIVE (NEGATIVE); URINE UROBILINOGEN 0.2 mg/dL (0.2 - 1)
--- NOTE | 2019-10-08 12:05 | Emergency Department Note ---
History of Present Illnes History of Present Illness Chief Complaint: General Medicine Complaints History of Present Illness This is a 29 year old male arrives to the ED with concerns his girlfriend is cheating on him. Patient states he wants to get STD testing to check. Patient denied any scrotal pain or swelling upon my evaluation contrary to what was mentioned in triage. Patient states his girlfriend was recently treated for some type of infection but doesn't know what it is. Patient denies any dysuria, penile discharge or hematuria. Chief Complaint Comment PATIENT IN FROM HOME WITH COMPLAINTS OFSCROTAL PAIN OFF AND ON X 2 DAYS; PATIENT DENIES ANY PENILE DISCHARGE OR PAIN WITH URINATION. PATIENT ALERT AND ORIENTED, RESP EVEN AND NONLABORED, APPEARS IN NO DISTRESS, RATES PAIN 08/16 Historian: Patient Arrival Mode: Car Progression: unchanged Past Medical/Family History Physician Review I have reviewed the patient's past medical and family history. Any updates have been documented here. Past Medical History Recent Fever: No Clinical Suspicion of Infectio: No New/Unexplained Change in Ment: No Past Medical History: Asthma Past Surgical History: None Social History Smoking Cessation: Current some day smoker Alcohol Use: Occasional Any Illegal Drug Use: No TB Exposure/Symptoms: No Physically hurt or threatened: No Family History Family history of heart diseas: No Other Last Tetanus: UNKNOWN Any Pre-Existing Lines (PICC,: No Is patient up to date on immun: Yes Last Flu: none Last Pneumovax: none Review of Systems Review of Systems Constitutional: no symptoms EENTM: no symptoms Cardiovascular: no symptoms Respiratory: no symptoms Gastrointestinal: no symptoms Genitourinary: as per HPI Musculoskeletal: no symptoms Neurological: no symptoms Psychological: no symptoms Endocrine: no symptoms Hematological/Lymphatic: no symptoms Review of other systems All other systems reviewed and negative. Physical Exam Related Data Allergies: Coded Allergies: diazepam (Verified Allergy, Severe, SEIZURES, 10/08/19) morphine (Verified Allergy, Severe, SEIZURES, 10/08/19) Triage Vital Signs Vital Signs Date Time Temp Pulse Resp B/P (MAP) Pulse Ox O2 Delivery O2 Flow Rate FiO2 10/08/19 09:40 97.6 80 16 119/85 97 Vital signs reviewed: Yes Physical Exam CONSTITUTIONAL Constitutional: well-developed, well-nourished HENT HENT: normocephalic, atraumatic, oropharynx clear/moist, nose normal HENT L/R: left ext ear normal, right ext ear normal EYES Eyes: PERRL, conjunctivae normal NECK Neck: ROM normal PULMONARY Pulmonary: effort normal, breath sounds normal CARDIOVASCULAR Cardiovascular: regular rhythm, heart sounds normal, capillary refill normal, normal rate GASTROINTESTINAL Abdominal: soft, nontender, bowel sounds normal GENITOURINARY Genitourinary: exam deferred SKIN Skin: warm, dry MUSCULOSKELETAL Musculoskeletal: ROM normal NEUROLOGICAL Neurological: alert, oriented x 3, no gross motor or sensory deficits PSYCHOLOGICAL Psychological: mood/affect normal, judgement normal Results Laboratory Laboratory Laboratory Tests Test 10/08/19 11:28 Lab results reviewed: Yes Laboratory comments Laboratory Tests Test 10/08/19 11:28 Urine Color Yellow (YELLOW) Urine Clarity Clear (CLEAR) Urine pH 6 (5 - 7) Urine Specific [place] 1.010 (1.010-1.025) Urine Protein Negative (NEGATIVE) Urine Glucose (UA) Negative (NEGATIVE) Urine Ketones Negative (NEGATIVE) Urine Blood Trace (NEGATIVE) Urine Nitrite Negative (NEGATIVE) Urine Bilirubin Negative (NEGATIVE) Urine Urobilinogen 0.2 mg/dL (0.2 - 1) Urine Leukocyte Esterase Negative (NEGATIVE) Urine Opiates Screen Negative (NEGATIVE) Urine Methadone Screen Negative (NEGATIVE) Urine Barbiturates Screen Negative (NEGATIVE) Urine Phencyclidine Screen Negative (NEGATIVE) Urine Amphetamines Screen Negative (NEGATIVE) Urine Methamphetamines Screen Negative (NEGATIVE) Urine Benzodiazepines Screen Negative (NEGATIVE) Urine Cocaine Screen Negative (NEGATIVE) Urine Cannabinoids Screen Negative (NEGATIVE) Critical Care Time Subsequent provider I assumed direction of critical care for this patient from another provider of my specialty. Assessment & Plan Assessment & Plan Final Impression: (1) OTHER GONOCOCCAL INFECTIONS Assessment & Plan given concerns will treat safe sex education given Depart Disposition: HOME, SELF-CARE Last Vital Signs Date Time Temp Pulse Resp B/P (MAP) Pulse Ox O2 Delivery O2 Flow Rate FiO2 10/08/19 09:40 97.6 80 16 119/85 97 Home Meds Active Scripts Doxycycline Hyclate (DOXYCYCLINE HYCLATE) 100 Mg Capsule, 100 MG PO BID, #14 TAB 0 Refills Prov:LAST REDMOND DO 10/08/19 LAST REDMOND DO Oct 08, 2019 12:05
[2019-10-08 12:30] LABS: BACTERIA,URINE RARE /HPF; EPITHELIAL CELLS,URINE RARE /LPF; WBC,URINE (MAN) 0-5 /HPF (0-5)
== END 2019-10-08 11:51 | disposition home or self-care (01) ==
LOC: ER 09:37
DX: N50.82 Scrotal pain (principal); A54.9 Gonococcal infection, unspecified; J45.909 Unspecified asthma, uncomplicated; F17.210 Nicotine dependence, cigarettes, uncomplicated
CPT/HCPCS: 76870; 80307; 81001; 87086; 93976; 99283

== ENCOUNTER 2020-07-03 21:32 | Emergency (ER) | payer OTHER ==
[~2020-07-03] VITALS: Ht 175.3 cm; Wt 78.5 kg
[~2020-07-03 21:32] MED LIST: DOXYCYCLINE HY100 MG PO
[2020-07-03] MEDS ORDERED: KETOROLAC TROMETHAMINE 30 MG/ML VIAL IV STA (21:36)
[2020-07-03] MEDS ORDERED: ORPHENADRINE CITRATE 30 MG/ML VIAL IM ONE (21:45)
[2020-07-03] MEDS ORDERED: KETOROLAC TROMETHAMINE 60 MG/2 ML VIAL IM ONE (21:45)
[2020-07-03 21:57] LABS: BASOPHILS % 0.4 % (0.0-1.0); EOSINOPHILS # (AUTO) 0.2 (0.0-0.4); EOSINOPHILS % 1.7 % (0.0-6.0); HEMATOCRIT 49.9 % (38.2-49.6); HEMOGLOBIN 17.4 g/dL (14.0-18.0); LYMPHOCYTES # (AUTO) 1.7 (1.0-3.2); LYMPHOCYTES % 18.5 % (18.0-39.1); MEAN CORPUSCULAR HEMOGLOBIN 32.3 pg (28-32); MEAN CORPUSCULAR HGB CONC 34.9 g/dL (31-35); MEAN CORPUSCULAR VOLUME 92.6 fL (81-99); MONOCYTES # (AUTO) 1.2 (0.2-0.8); MONOCYTES % 12.6 % (4.4-11.3); NEUTROPHILS # (AUTO) 6.1 (2.1-6.9); NEUTROPHILS % 66.5 % (38.7-80.0); PLATELET COUNT 245 x10e3/uL (140-360); RED BLOOD COUNT 5.39 x10e6/uL (4.3-5.7); RED CELL DISTRIBUTION WIDTH 12.1 % (11.7-14.4)
[2020-07-03 22:02] LABS: ALANINE AMINOTRANSFERASE 16 IU/L (0-55); ALBUMIN 3.9 g/dL (3.5-5.0); ALBUMIN/GLOBULIN RATIO 1.1 (0.8-2.0); ALKALINE PHOSPHATASE 71 IU/L (40-150); ANION GAP 15.5 mmol/L (8-16); BLOOD UREA NITROGEN 14 mg/dL (7-26); BUN/CREATININE RATIO 11 (6-25); CALCIUM 9.7 mg/dL (8.4-10.2); CARBON DIOXIDE 25 mmol/L (22-29); CHLORIDE 104 mmol/L (98-107); CREATININE, SERUM 1.22 mg/dL (0.72-1.25); EST GLOMERULAR FILTRATION RATE > 60 ML/MIN (60-); GLUCOSE 96 mg/dL (74-118); POTASSIUM 3.5 mmol/L (3.5-5.1); SODIUM 141 mmol/L (136-145)
[2020-07-03 22:04] LABS: AMPHETAMINES SCREEN,URINE NEGATIVE (NEGATIVE); BENZODIAZEPINES SCREEN,URINE NEGATIVE (NEGATIVE); CLARITY,URINE CLEAR (CLEAR); COLOR,URINE YELLOW (YELLOW); KETONES,URINE TRACE (NEGATIVE); LEUKOCYTE ESTERASE ,URINE NEGATIVE (NEGATIVE); NITRITE,URINE NEGATIVE (NEGATIVE); PHENCYCLIDINE SCREEN,URINE NEGATIVE (NEGATIVE); PROTEIN,URINE DIPSTICK NEGATIVE (NEGATIVE); URINE UROBILINOGEN 0.2 mg/dL (0.2 - 1)
[2020-07-03 22:09] LABS: BACTERIA,URINE FEW /HPF; EPITHELIAL CELLS,URINE RARE /LPF; MUCUS,URINE FEW (RARE); RBC,URINE 0-5 /HPF (0-5); WBC,URINE (MAN) 0-5 /HPF (0-5)
[2020-07-03 23:36] VITALS: BP 112/76
== END 2020-07-03 23:05 | disposition home or self-care (01) ==
LOC: ER 21:39
DX: S39.012A Strain of muscle, fascia and tendon of lower back, initial encounter (principal); J45.909 Unspecified asthma, uncomplicated; G40.909 Epilepsy, unspecified, not intractable, without status epilepticus
CPT/HCPCS: 36415; 80053; 80307; 81001; 85025; 99283; J1885; J2360